=== PATIENT | female | born 1960 | race Caucasian/White ===

== ENCOUNTER 2024-10-16 15:42 | Emergency (ER) | payer OTHER, SELFPAY ==
[2024-10-16 15:44] VITALS: BP 161/96
[2024-10-16 16:17] LABS: % Basophils 0.4 % (0-2); % Eosinophils 1.1 % (0-6); % Immature Granulocytes 0.9 % (0-0.5); % Lymphocytes 46.9 % (20.5-51.1); % Monocytes 6.5 % (1.7-9.3); % Neutrophils 44.2 % (42.2-75.2); Absolute Eosinophils 0.1 10^3/uL (0-0.7); Absolute Immature Granulocytes 0.1 10^3/uL (0-0.05); Absolute Lymphocytes 2.6 10^3/uL (1.2-3.4); Absolute Monocytes 0.4 10^3/uL (0.1-0.6); Absolute Neutrophils 2.4 10^3/uL (1.4-6.5); Hematocrit 40.4 % (37.0-47.0); Mean Corp Hgb Conc. 34.7 g/dL (33.0-37.0); Mean Corpuscular Hgb 30.9 pg (27.0-31.0); Mean Corpuscular Volume 89.2 fL (81.0-99.0); Mean Platelet Volume 8.4 fL (7.4-10.4); Nucleated Red Blood Cells % 0 %; Platelet Count 232 10^3/uL (130-400); Red Blood Cell Count 4.53 10^6/uL (4.20-5.40); Red Cell Dist. Width 12.7 % (11.5-14.5); White Blood Cell Count 5.5 10^3/uL (4.8-10.8)
[2024-10-16 16:31] LABS: ALT (SGPT) 20 U/L (0-35); AST (SGOT) 19 U/L (14-36); Albumin 3.8 g/dl (3.5-5.0); Alkaline Phosphatase 86 U/L (38-126); Blood Urea Nitrogen 19 mg/dl (7-17); Calcium 9.6 mg/dl (8.4-10.2); Carbon Dioxide 31 mmol/L (22-30); Chloride 105 mmol/L (98-107); Glucose 90 mg/dl (70-99); Lipase 118 U/L (23-300); Potassium 3.7 mmol/L (3.5-5.1); Sodium 141 mmol/L (135-145); Total Bilirubin 0.6 mg/dl (0.2-1.3); Total Protein 6.6 g/dl (6.3-8.2); eGFR > 60.00
[2024-10-16 17:01] VITALS: BMI 23.8
[2024-10-16 17:03] VITALS: BP 128/90
[2024-10-16 17:28] LABS: Urine Albumin 3+ (Neg - Trace); Urine Bilirubin Negative (Negative); Urine Character Cloudy (Clear); Urine Color Amber; Urine Glucose Negative (Negative); Urine Ketone Negative (Negative); Urine Leukocyte 1+ (Negative); Urine Nitrite Positive (Negative); Urine Occult Blood 4+ (Negative); Urine Specific Gravity 1.015 (<1.030); Urine Urobilinogen 1+ (Neg - 1+); Urine pH 6.5 (5.0-9.0)
[2024-10-16 17:46] LABS: Urine Red Blood Cell >100 /HPF (0-2)
[2024-10-16 17:47] LABS: Urine Bacteria Few (Negative)
[2024-10-16 18:00] VITALS: BP 128/84
[2024-10-16 19:00] VITALS: BP 130/85
--- NOTE | 2024-10-16 20:28 | ED.GENMED ---
History of Present Illness
General
Chief Complaint: Flank Pain
Source: patient
Exam Limitations: none
Time Seen by Provider: 10/16/24 18:02
Nursing documentation reviewed up to this point in time: agreed with
History of Present Illness
History of Present Illness:
64-year-old female with history of HLD, depression presents for left flank pain that started suddenly early this morning and gradually worsened and now seems to be subsiding. Denies n/v/fever.
Denies burning, frequency, urgency to urinate. Denies abdominal pain.
Past History
Past History
ED Past Medical History: Hypercholesterolemia and Psychiatric (depression)
ED Past Surgical History: Gynecological (History ectomy, rectal prolapse repair)
Social History
Tobacco: Non-smoker
Alcohol: None
Personal:
Living: with family
Employment: Not employed
Review of Systems
Review of Systems
Allergies reviewed?: Yes
All Other Systems: ROS reviewed and negative except as documented in HPI and ROS
Constitutional: Denies fever or chills
Respiratory: Denies trouble breathing
Cardiac: Denies chest pain
ABD/GI: Reports abdominal pain (left); Denies nausea, vomiting, diarrhea or anorexia
: Reports flank pain (left); Denies dysuria, frequency or difficulty voiding
Musculoskeletal: Reports no symptoms
Skin: Reports no symptoms
Neurological: Reports no symptoms
Phy Exam
Physical Exam
Physical Exam:
GENERAL: No acute distress. A&Ox3.
CONSTITUTIONAL: Afebrile.
EYES: clear, conjunctivae normal
ENMT: moist mucus membranes
RESPIRATORY: Regular respirations, nonlabored, lungs clear.
CARDIOVASCULAR: Regular rate and rhythm, no murmurs, no rubs.
GI: Soft, nontender, normal BS
MUSCULOSKELETAL: Moves with ease. Well perfused.
SKIN: Warm, dry, pink
PSYCH: Normal mood and affect. Well kept, interactive and appropriate
NEUROLOGIC: Awake, alert and oriented. No focal neurological deficits
Course
Orders/Labs/Results
Orders:
Orders
10/16/24 15:57
Complete Blood Count/With Diff Urgent
Comprehensive Metabolic Panel Urgent
Lipase Urgent
Urinalysis Reflex To Culture Urgent
Date Specimen was Collected: 10/16/24
Time Specimen was Collected: 15:48
Urine Microscopic Reflex Cult Urgent
Urine Culture Urgent
DWAYNE Source: U
Specimen Description:
Date Specimen was Collected: 10/16/24
Time Specimen was Collected: 15:48
10/16/24 18:01
CT Abd/pel Without Iv Or Oral Urgent
Comment:
Reason For Exam: L flank pain, hematuria
Abnormal Lab Results
10/16/24
15:57
Abs Immat Gran (auto) 0.1 H 10^3/uL
(0-0.05)
Immature Gran % 0.9 H %
(0-0.5)
Carbon Dioxide 31 H mmol/L
(22-30)
BUN 19 H mg/dl
(7-17)
Ur Occult Blood Reflex 4+ A
(Negative)
Urine Nitrite (Reflex) Positive A
(Negative)
Leukocyte Esterase Rfl 1+ A
(Negative)
Urine RBC >100 A /HPF
(0-2)
Urine Bacteria (Reflex) Few A
(Negative)
Urine Albumin (Reflex) 3+ A
(Neg - Trace)
10/16/24 15:57
10/16/24 15:57
Vital Signs
Initial and Last Documented VS:
Initial Vital Signs
Temp Pulse Resp BP Pulse Ox
97.9 F 78 20 161/96 99
10/16/24 15:44 10/16/24 15:44 10/16/24 15:44 10/16/24 15:44 10/16/24 15:44
Last Documented Vital Signs
Temp Pulse Resp BP Pulse Ox
97.9 F 78 20 130/85 100
10/16/24 15:44 10/16/24 15:44 10/16/24 15:44 10/16/24 19:00 10/16/24 19:45
MDM/Problems Addressed
Differential Diagnosis Includes:
kidney stone, UTI, pyelonephritis
MDM/Problems Addressed:
64-year-old female with history of HLD, depression presents for left flank pain that started suddenly early this morning and gradually worsened and now seems to be subsiding. Denies n/v/fever.
Denies burning, frequency, urgency to urinate. Denies abdominal pain.
Afebrile, NAD
19:30 P.M.
CBC, CMP with no clinically significant abnormality
U/A: Occult blood +4, RBCs greater than 100, no WBCs
CT scan radiology report read: There is mild left-sided hydronephrosis. There is a questionable punctate hyperdensity at the left ureterovesicular junction which is favored to represent a small stone. There are additional nonobstructing stones in
the inferior pole the left kidney measuring up to 3 mm.
Pt is with minimal pain at this time
She is comfortable going home.
referred to Urology
Given copy of her CT report
*Critical Care Note
Total Time (30-74mins, 75-104mins- exclusive of procedures): Not Applicable
ED Attending Note
-
Portions of this chart may have been created with voice recognition software.� Occasional wrong word or��sound alike� substitutions may have occurred due to the inherent limitations of voice recognition software.
Discharge Plan
Departure
Patient Disposition: Home (Routine Discharge)
Date of Disposition: 10/16/24
Time of Disposition: 20:26
Patient with high blood pressure during this ER visit?: No
Condition: Good
Discharge Problem:
Calculus of distal left ureter
Instructions: Kidney Stones (DC), How to Strain Your Urine
Referrals:
Curly Weeks MD [Active] - Call in 1-3 days for appt
Estee Banda NP [Family Provider] -
Activity Restrictions/Additional Instructions:
As we discussed, you have most likely passed a kidney stone. The worst of your pain should be over. You may take ibuprofen 600 mg with food if needed for pain
Call the urology office on Saturday and ask when they want to see you for follow-up.
Strain your urine and if you pass a stone keep it and show the urologist
Return here immediately for fever, vomiting, worsening pain or feeling worse in any way.
Interventions
Interventions:
*Risk Screen - Suicide Last Done: 10/16/24 17:01
*General Assessment Last Done: 10/16/24 15:44
*Neglect/Abuse Screening Last Done: 10/16/24 17:01
*ED- Fall Risk Assessment Last Done: 10/16/24 17:01
*ED COVID-19 Vaccine History Last Done: 10/16/24 17:01
*Nursing Disposition Last Done: 10/16/24 20:34
[facility]-[place]-Nfxwrowanl Assessment Last Done: 10/16/24 17:01
ED-Female Genitourinary Assessment Last Done: 10/16/24 17:01
Discharge Date and Time
Discharge Date/Time: 10/16/24 20:34
Print Language: CZECH
== END 2024-10-16 20:34 | disposition home or self-care (01) ==
LOC: EMR 15:42
PROVIDERS: EMERGENCY PHYSICIAN Student in an Organized Health Care Education/Training Program; FAMILY PHYSICIAN Nurse Practitioner Family
DX: N13.2 Hydronephrosis with renal and ureteral calculous obstruction (principal); E78.00 Pure hypercholesterolemia, unspecified; F32.A Depression, unspecified
CPT/HCPCS: 99284; 74176; 80053; 81003; 81015; 83690; 85025; 87086

== ENCOUNTER 2024-10-30 06:11 | Day surgery (SDC) | payer OTHER, SELFPAY ==
[2024-10-30] VITALS (15 sets, daily range): BP systolic 114–182; BP diastolic 84–105; BMI 23.2
[2024-10-30] MEDS: NORMOSOL-R/PLASMALYTE-A 1000 IV (08:17)
[2024-10-30] MEDS: SUBLIMAZE 50 MCG IV (09:28)
[2024-10-30] MEDS: Pyridium 200 MG PO (09:43)
[2024-10-30] MEDS: MOTRIN 600 MG PO (10:10)
[2024-10-30] MEDS: ZOFRAN 4 MG IV (10:32)
[2024-10-30] MEDS: DILAUDID 0.5 MG IV (11:27)
[2024-10-30] MEDS: FLOMAX 0.4 MG PO (11:49)
[2024-10-30] MEDS: VALIUM INJECTION 5 MG IV (11:57)
[2024-10-30] MEDS: ROXICODONE 5 MG PO (13:16)
== END 2024-10-30 13:25 | disposition home or self-care (01) ==
LOC: SDS 06:11
PROVIDERS: ATTENDING PHYSICIAN Specialist
DX: N13.2 Hydronephrosis with renal and ureteral calculous obstruction (principal); R31.0 Gross hematuria
CPT/HCPCS: 52352; 74420; 76000; 82365; 93005; C1894